=== PATIENT | female | born 1995 | race Two or more races ===

== ENCOUNTER 2024-03-08 15:46 | Emergency (ER) | payer OTHER ==
[~2024-03-08] VITALS: Ht 165.1 cm; Wt 76.0 kg
[2024-03-08 15:50] VITALS: O2SAT 100
[2024-03-08] MEDS: IBUPROFEN 400MG TABLET PO ONE (16:00)
[2024-03-08] MEDS ORDERED: NAPR-679 MT (17:15)
[2024-03-08 17:50] VITALS: BP 121/78; PULSE 81; RESP 16; TEMP 98.9
== END 2024-03-08 17:55 | disposition home or self-care (01) ==
LOC: ER 15:46
DX: S93.491A Sprain of other ligament of right ankle, initial encounter (principal); X58.XXXA Exposure to other specified factors, initial encounter; Y93.89 Activity, other specified; Y92.89 Other specified places as the place of occurrence of the external cause; Y99.8 Other external cause status
CPT/HCPCS: 73610; 99283; Z7610